=== PATIENT | male | born 1980 | race Caucasian/White ===

== ENCOUNTER 2017-05-10 06:05 | Inpatient (IN) | payer MEDICARE, MEDICAID ==
[~2017-05-10] VITALS: Ht 198.1 cm; Wt 135.0 kg
[2017-05-10] MEDS ORDERED: NUCY100T3 PO (06:21)
[2017-05-10] MEDS ORDERED: ALLO100T PO (06:21)
[2017-05-10 07:47] LABS: MEAN CORPUSCULAR HEMOGLOBIN 28.7 pg (27.0-33.0); MEAN CORPUSCULAR HGB CONC 34.3 g/dl (32.0-36.5); MEAN CORPUSCULAR VOLUME 83.7 fl (80.0-96.0); PLATELET COUNT, AUTOMATED 336 10^3/uL (150-450); RED CELL DISTRIBUTION WIDTH 13.1 % (11.5-14.5); WHITE BLOOD COUNT 13.7 10^3/uL (4.0-10.0)
[2017-05-10 08:27] LABS: ALBUMIN 4.2 GM/DL (3.2-5.2); ALKALINE PHOSPHATASE 109 U/L (45-117); ALT/SGPT 37 U/L (12-78); ANION GAP 13 MEQ/L (8-16); AST/SGOT 19 U/L (7-37); BILIRUBIN,DIRECT < 0.1 MG/DL (0.0-0.2); BILIRUBIN,TOTAL 0.4 MG/DL (0.2-1.0); BLOOD UREA NITROGEN 16 MG/DL (7-18); CALCIUM LEVEL 9.1 MG/DL (8.5-10.1); CARBON DIOXIDE LEVEL 20 MEQ/L (21-32); CHLORIDE LEVEL 108 MEQ/L (98-107); CREATININE FOR GFR 1.12 MG/DL (0.70-1.30); GLOMERULAR FILTRATION RATE > 60.0 (>60); GLUCOSE, FASTING 153 MG/DL (70-105); POTASSIUM SERUM 4.6 MEQ/L (3.5-5.1); SODIUM LEVEL 141 MEQ/L (136-145); TOTAL PROTEIN 7.7 GM/DL (6.4-8.2)
[2017-05-10 10:48] LABS: METHADONE URINE NEGATIVE (NEGATIVE)
[2017-05-10] MEDS ORDERED: ACETAMINOPHEN TAB 650MG DOSE (2X325MG) PO PRN (12:45)
[2017-05-10] MEDS ORDERED: MAALOX 30 ML SUSP *UDC PO PRN (12:45)
[2017-05-10] MEDS ORDERED: MOM 30ML SUSPENSION UDC PO PRN (12:45)
[2017-05-10 15:24] VITALS: BP 160/118
[2017-05-10] MEDS: LISINOPRIL 10 MG TAB PO SCH (17:47)
[2017-05-10] MEDS: ALLOPURINOL 100 MG TAB PO SCH (18:38)
[2017-05-10] MEDS: TAPENTADOL 50 MG TABLET (NUCYNTA) PO PRN ×2 (18:51→21:45)
[2017-05-10] MEDS: traZODone 50 MG TAB PO PRN (20:18)
[2017-05-11 06:00] VITALS: BP 153/77
[2017-05-11] MEDS: ALLOPURINOL 100 MG TAB PO SCH (08:26)
[2017-05-11] MEDS: LISINOPRIL 10 MG TAB PO SCH (08:26)
[2017-05-11] MEDS: TAPENTADOL 50 MG TABLET (NUCYNTA) PO PRN ×5 (08:27→21:57)
--- NOTE | 2017-05-11 17:07 | MHHPE ---
DATE OF ADMISSION: 05/10/2017 LEGAL STATUS AT ADMISSION: 9.39 legal status. CHIEF COMPLAINT: "I said the wrong thing." HISTORY OF PRESENT ILLNESS: A 36-year-old male without history of psychiatric problems, admitted to our unit on a 9.39 legal status. According to the record, the patient was brought by the police after the father stated that the patient was holding a gun to his throat and said, "I am at the end of my rope." The patient denies having the gun pointed at his throat. Then after being admitted in our unit, he reported some depression and admitted some suicidal thoughts, and today during the interview, the patient says that he has tendency to hold in all the problems and stress and every once in a while he explodes, and then at this time, he needs to, "talk to my family." He said that he was at his parents' house but the parents were not there. Another relative who is young was there and when he expressed his suicidal thoughts, she got very concerned and the police was called. During the interview, the patient is minimizing all the events that led to his admission. The patient says that his mood is just fine and that appetite is okay. He admits to having tendency to low sleep. He admits to having cognitive distortions. He thinks that he is a burden to the family because he is now disabled and is a, "people person," so he needs to get them around and he is self conscious that, "they think I am a burden." Again, the patient has a tendency to minimize so he said that he has no suicidal thoughts and that his mood is fine. There is no evidence of psychotic symptoms. No auditory or visual hallucinations or delusions. At this point, the patient is considered not reliable and will need to be in observation. PAST MEDICAL HISTORY: The patient is diabetic and has several herniated discs in the lumbar spine. PAST PSYCHIATRIC HISTORY: The patient has no past psychiatric history. This is his first psychiatric admission. He says that he saw a few times a psychiatric in 2008 but, "it wasn't for me," so he stopped the treatment. FAMILY HISTORY: There is no psychiatric family history by the patient's report. SUBSTANCE ABUSE HISTORY: The patient denies any current or past problems with drugs or alcohol. SOCIAL HISTORY: The patient was raised by both parents. The patient reports a great childhood with no abuse or neglect. He finished high school. 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 Now, he is disabled because of the lower back. He lives alone in an apartment. The patient reports that he has a great support from his family. PSYCHIATRIC REVIEW OF SYSTEMS: BIPOLAR DISORDER/KERMIT: No destructibility or grandiosity. No flight or ideas or pressured speech. SUBSTANCE ABUSE DISORDER: The patient answers negative to CAGE questionnaire. ANXIETY DISORDER: The patient is slightly anxious. Denies panic, agoraphobia. OBSESSIVE-COMPULSIVE DISORDER: Denies washing hands or checking things over and over. SOMATIZATION DISORDER: Screening for pain, conversion, gastrointestinal (GI), or sexual symptoms are negative. EATING DISORDER: Screening for dieting, use of laxative, eating in binges is negative. COGNITIVE DISORDER: Short and long-term memory impairment, orientation, and general information is negative for cognitive disorder. PSYCHOTIC DISORDER: There is no evidence of delusions, paranoia, grandiosity, lutheran preoccupation. No hallucinations. No looseness of associations. PHYSICAL EXAMINATION: As per physician assistant golf coach. LABORATORY DATA AT ADMISSION: His CBC showed white blood cells were 13.7, red blood cells were 6.20, rest within normal limits. CMP is unremarkable. TSH within normal limits. Blood alcohol level is negative. Urine drug screen is negative. DIAGNOSES: AXIS I: Unspecified depressive disorder. AXIS II: Deferred. AXIS III: Diabetes, lower back pain. INITIAL TREATMENT PLAN: The patient was admitted on a 9.39 legal status. Complete history was obtained. With her permission, family will be contacted and database will be expanded. His medication regimen will be reviewed and changed accordingly. He will provided with protected environment. He will be treated with individual, group and milieu therapies. He will also receive supportive psychoeducation. Discharge planning will commence immediately. Length of stay will be between three and five days. Outpatient followup will be strongly recommended. The treatment plan will focus initially on depression and risk for suicide.
[2017-05-11 18:00] VITALS: BP 149/88
[2017-05-11] MEDS: traZODone 50 MG TAB PO PRN (21:56)
--- NOTE | 2017-05-11 22:50 | HPE ---
DATE OF ADMISSION: 05/10/2017 HISTORY OF PRESENT ILLNESS: Please refer to psychiatric history and evaluation for further details on this admission. This examination and history is intended for medical issues, which may need treatment, followup or consult on this 36-year-old male. ALLERGIES: No known allergies. PRIMARY CARE PROVIDER: Dr. Treviño. SOCIAL HISTORY: He is single. He does not drink alcohol. He does not smoke cigarettes. He does not use recreational drugs. PAST MEDICAL HISTORY: 1. Gout. 2. History of herniated disc lumbosacral spine. 3. History of jal-dgkyzeg-cmosygfkd diabetes type 2 for which he states he is only diet controlled. He states his last hemoglobin A1c was in the low sixes. 4. History of hypertension. He had been taken off his lisinopril. He had a vasovagal reaction getting blood drawn, and his pressure was slightly low right after, so his doctor had stopped his lisinopril. After a few days, it came back up. It was elevated upon arrival here, and he has been restarted on his lisinopril. 5. History of gastroesophageal reflux disease (GERD). PAST SURGICAL HISTORY: 1. Cardiac surgery as a . 2. Hernia repair. 3. Appendectomy. HOME MEDICATIONS: - allopurinol 100 mg by mouth daily - Nucynta 100 mg by mouth three times a day - lisinopril 10 mg by mouth daily which he had been taken off of, but we are restarting. LABORATORY DATA: WBC 13.7, hemoglobin 17.8, hematocrit 51.9, platelets 336. Sodium 141, potassium 4.6, chloride 108, CO2 20, BUN and creatinine 16 and 1.12. Toxicology negative. REVIEW OF SYSTEMS: 10-systems review was done and other than chronic back pain, the patient had no complaints. PHYSICAL EXAMINATION: 36-year-old obese male in no acute distress. VITAL SIGNS: Height 78 inches, weight 130 kg. Body mass index (BMI) 33.1. Blood pressure 149/88, pulse 100, respirations 16, temperature 97.4. GENERAL: The patient is alert and oriented times three. HEENT: Pupils equal and react to light. Extraocular movement intact. Sclerae clear. Conjunctivae normal. No facial asymmetry. Pharynx, tongue, gums pink and moist. Tongue is midline. NECK: Supple without lymphadenopathy. No thyromegaly. No goiter. Carotids 2+ without bruits. CHEST: Clear to auscultation without wheeze or retraction. HEART: Regular. ABDOMEN: Benign. Bowel sounds are positive. GENITOURINARY/RECTAL: Not done. EXTREMITIES: Equal strength, full range of motion. No cyanosis, clubbing or edema. Peripheral pulses equal and palpable bilaterally. SKIN: Warm and dry. IMPRESSION: 1. Psychiatric plan per psychiatry. 2. History of gout. Continue with allopurinol 100 mg by mouth daily. 3. Hypertension. Lisinopril 10 mg by mouth daily. Monitor blood pressure. May need to increase dose. 4. Rrh-cjgiyip-dhsqcszxu diabetes, type 2, diet controlled. We will get updated hemoglobin A1c. Consistent carbohydrate diet. Fingerstick blood sugars twice a day.
[2017-05-12 06:29] VITALS: BP 130/60
[2017-05-12 08:31] VITALS: BP 148/88
[2017-05-12] MEDS: ALLOPURINOL 100 MG TAB PO SCH (08:31)
[2017-05-12] MEDS: LISINOPRIL 10 MG TAB PO SCH (08:31)
[2017-05-12] MEDS: TAPENTADOL 50 MG TABLET (NUCYNTA) PO PRN (08:33)
[2017-05-12] MEDS ORDERED: TRAZO50TA PO (10:54)
--- NOTE | 2017-05-12 17:18 | MHDS ---
DATE OF ADMISSION: 05/10/2017 DATE OF DISCHARGE: 05/12/2017 LEGAL STATUS AT ADMISSION: 9.39 legal status. HISTORY OF PRESENT ILLNESS: 36-year-old male without a psychiatric history admitted to our unit on a 9.39 legal status. According to the record, the patient was brought by the police after the father stated that the patient was holding a gun to his throat and said, "I am at the end of my rope." The patient denied having the gun pointed to at his throat. Then after being admitted in our unit, he reported some depression and admitted to some suicidal thoughts. During the interview today, the patient says that he has tendency to hold in all of his problems and stress and every once in a while he explodes and then at this time he needs to "talk to my family." He said that he was at his parents' house, but the parents were not there. Another relative, who is young, was there and when he expressed his suicidal thoughts, the patient said that she got concerned and the police were called. During the interview, the patient is minimizing all the events that lead to the admission. The patient says that his mood is just fine and his appetite is okay. He admits that he has low sleep. Admits to having cognitive distortions. He thinks that he is a burden to his family because he is disabled and I am a "people person," so he needs to get around and he feels that they think he is a burden. Again, the patient is denying suicidal thoughts during admission. There was no evidence of psychotic symptoms. No auditory or visual hallucinations or delusions. LABORATORIES: At admission, his complete blood count (CBC) showed white blood cells of 13.7, RDW 6.20, rest within normal limits. CMP was unremarkable. Urine drug screen was negative. Blood alcohol level was negative. HOSPITAL COURSE: After the first evaluation, it was decided to observe the patient but not to start psychotropic medication. The only medication he took was trazodone 50 mg at bedtime that he felt was helpful. After observation, we could not observe any signs of symptoms of major depression, psychosis, anxiety. The patient was calm and cooperative. He was interacting very well with other patients and staff. There was no evidence of irritability, impulsivity or agitation. Therefore, at this point, the patient does not meet criteria of involuntary hospitalization. A family meeting was held before discharge. MENTAL STATUS EXAMINATION: On discharge, the patient is calm and cooperative. He is dressed in [facility]. Has fair eye contact. Speech is clear, coherent with normal rate and is spontaneous. Mood is euthymic. Affect is appropriate and congruent with mood. The patient is oriented to time, place, person and situation. Maintains attention and concentration correctly. Instant recall, recent and remote memory are intact. Thought processes are coherent, logical and goal directed. The patient does not have auditory or visual hallucinations. The patient does not have paranoid, persecutory, somatic, grandiose or judaism delusions. The patient is denying suicidal or homicidal ideation. Judgment and insight are fair. DISCHARGE DIAGNOSES: [place] I: Adjustment disorder with depressed and anxious mood. [place] II: Deferred. [place] III: None acute. CONDITION AT DISCHARGE: Stable. No auditory or visual hallucinations. No delusions. No suicidal or homicidal ideation. INSTRUCTIONS AT DISCHARGE: The patient refuses to get an appointment at [facility], says that he had treatment with a psychiatrist in the past and it was not helpful and he does not want to get an appointment at this time, but he said that he will get it if he thinks he needs it in the future. The patient is advised to maintain absolute sobriety from drugs and alcohol.
== END 2017-05-12 14:10 | disposition home or self-care (01) | DRG 882 ==
LOC: M ED 06:05 → M ED INP 12:37 → M PSY 15:24
PROVIDERS: ADMIT Psychiatry & Neurology Psychiatry; ATTEND Psychiatry & Neurology Psychiatry
DX: F43.23 Adjustment disorder with mixed anxiety and depressed mood (principal); M10.9 Gout, unspecified; E11.9 Type 2 diabetes mellitus without complications; I10 Essential (primary) hypertension; K21.9 Gastro-esophageal reflux disease without esophagitis; Z79.899 Other long term (current) drug therapy